=== PATIENT | male | born 1995 | race Caucasian/White ===

== ENCOUNTER 2016-04-21 14:01 | Emergency (ER) | payer OTHER ==
[~2016-04-21] VITALS: Ht 160 cm; Wt 136.1 kg
[2016-04-21 14:20] VITALS: BP 151/98
[2016-04-21] MEDS ORDERED: IBUPROFEN 600 MG TABLET PO ONE ×2 (16:25→16:30)
[2016-04-21] MEDS ORDERED: HYDROCODONE BIT/HOMATROPINE 5 ML UDC ONE (16:25)
[2016-04-21] MEDS ORDERED: HYDROCODONE BIT/HOMATROPINE 5 ML UDC PO ONE (16:30)
[2016-04-21 16:36] LABS: KETONES,URINE Negative (NEGATIVE); LEUKOCYTE ESTERASE ,URINE Negative (NEGATIVE)
[2016-04-21 16:43] LABS: ADD UA MICROSCOPIC YES
[2016-04-21 16:53] LABS: ADD URINE CULTURE NO; RBC,URINE 0-2 /HPF (0-2); WBC,URINE 0-2 /HPF (0-3)
== END 2016-04-21 17:16 | disposition home or self-care (01) ==
LOC: ER 14:06
DX: N50.811 Right testicular pain (principal); J06.9 Acute upper respiratory infection, unspecified; F84.5 Asperger's syndrome; F90.9 Attention-deficit hyperactivity disorder, unspecified type
CPT/HCPCS: 76870; 81001; 99285; A4606; Z7610; 81000-TC